=== PATIENT | male | born 1990 | race Caucasian/White ===

== ENCOUNTER 2018-03-20 22:52 | Emergency (ER) | payer OTHER ==
[2018-03-21] MEDS: ERYTHROMYCIN OPHTH OINT OU (04:20)
== END 2018-03-21 04:21 | disposition home or self-care (01) ==
LOC: M ED 22:52
DX: H10.023 Other mucopurulent conjunctivitis, bilateral (principal)
CPT/HCPCS: 99282